=== PATIENT | female | born 1995 | race Caucasian/White ===

== ENCOUNTER 2018-10-15 17:30 | Emergency (ER) | payer OTHER ==
[2018-10-15 17:40] VITALS: BP 150/88
--- NOTE | 2018-10-15 18:02 | ER Document Report ---
ED Medical Screen (RME) - General Chief Complaint: Vaginal Bleeding Stated Complaint: VAGINAL BLEEDING Time Seen by Provider: 10/15/18 17:56 Mode of Arrival: Ambulatory Information source: Patient Notes: 23-year-old female presented to ED for complaint of vaginal bleeding and pelvic pain with nausea. Pain with intercourse. She states that her last regular menstrual period was May 30. She states beginning of September she started bleeding and some days it would be spotting some days it would be brown and some days it would be 9 and would change every day and then yesterday and today she has had very heavy bleeding with pelvic pain. She does have a history of ovarian cysts otherwise no medical history. I have greeted and performed a rapid initial assessment of this patient. A co mprehensive ED assessment and evaluation of the patient, analysis of test results and completion of medical decision making process will be conducted by an additional ED providers. Dictation of this chart was performed using voice recognition software; therefore, there may be some unintended grammatical errors. - Related Data Allergies/Adverse Reactions: No Known Allergies Allergy (Unverified 10/15/18 17:37) Past Medical History - Social History Chew tobacco use (# tins/day): No Frequency of alcohol use: None Drug Abuse: None Renal/ Medical History: Denies: Hx Peritoneal Dialysis Physical Exam - Vital signs Vitals: Temp Pulse Resp BP Pulse Ox 97.5 F 85 18 150/88 H 98 10/15/18 17:39 10/15/18 17:39 10/15/18 17:39 10/15/18 17:39 10/15/18 17:39 Course - Vital Signs Vital signs: Temp Pulse Resp BP Pulse Ox 97.5 F 85 18 150/88 H 98 10/15/18 17:39 10/15/18 17:39 10/15/18 17:39 10/15/18 17:39 10/15/18 17:39
[2018-10-15 18:30] LABS: ABSOLUTE BASOPHILS # (AUTO) 0.1 10^3/uL (0.0-0.2); ABSOLUTE EOSINOPHILS # (AUTO) 0.3 10^3/uL (0.0-0.6); ABSOLUTE LYMPHOCYTES (AUTO) 2.1 10^3/uL (0.5-4.7); ABSOLUTE MONOCYTES (AUTO) 0.4 10^3/uL (0.1-1.4); ABSOLUTE NEUT (AUTO) 4.2 10^3/uL (1.7-8.2); BASOPHILS % (AUTO) 1.1 % (0-2); EOSINOPHILS % (AUTO) 4.3 % (0-6); HEMATOCRIT 38.4 % (36.0-47.0); HEMOGLOBIN 13.1 g/dL (12.0-15.5); LYMPHOCYTES % (AUTO) 29.5 % (13-45); MEAN CORPUSCULAR HEMOGLOBIN 30.5 pg (27.0-33.4); MEAN CORPUSCULAR HGB CONC 34.2 g/dL (32.0-36.0); MEAN CORPUSCULAR VOLUME 89 fl (80-97); MONOCYTES % (AUTO) 5.3 % (3-13); PLATELET COUNT 320 10^3/uL (150-450); RED CELL DISTRIBUTION WIDTH 13.5 % (11.5-14.0); SEGMENTED NEUTROPHILS % (AUTO) 59.8 % (42-78); TOTAL CELLS COUNTED % (AUTO) 100 %
[2018-10-15 18:40] LABS: APPEARANCE,URINE CLEAR; BILIRUBIN,URINE NEGATIVE (NEGATIVE); COLOR,URINE YELLOW; GLUCOSE, URINE NEGATIVE (NEGATIVE); KETONES,URINE NEGATIVE (NEGATIVE); LEUKOCYTE ESTERASE,URINE NEGATIVE (NEGATIVE); NITRITE,URINE NEGATIVE (NEGATIVE); PROTEIN,URINE NEGATIVE (NEGATIVE); URINE SPECIFIC GRAVITY 1.023; UROBILINOGEN,URINE NEGATIVE mg/dL (<2.0)
[2018-10-15 18:49] LABS: ALANINE AMINOTRANSFERASE 20 U/L (9-52); ALBUMIN 4.1 g/dL (3.5-5.0); ALKALINE PHOSPHATASE 79 U/L (38-126); ANION GAP 8 (5-19); ASPARTATE AMINO TRANSFERASE 20 U/L (14-36); BILIRUBIN,DIRECT 0.1 mg/dL (0.0-0.4); BILIRUBIN,TOTAL 0.2 mg/dL (0.2-1.3); BLOOD UREA NITROGEN 10 mg/dL (7-20); CALCIUM 9.2 mg/dL (8.4-10.2); CARBON DIOXIDE 25 mmol/L (22-30); CHLORIDE 107 mmol/L (98-107); GLUCOSE 130 mg/dL (75-110); POTASSIUM 4.8 mmol/L (3.6-5.0); SODIUM 140.3 mmol/L (137-145); TOTAL PROTEIN 6.5 g/dL (6.3-8.2)
--- NOTE | 2018-10-15 19:37 | RADIOLOGY REPORT (SQ) ---
EXAM DESCRIPTION: U/S NON-OB PELVIS TV W/O DOP COMPLETED DATE/TIME: 10/15/2018 7:03 pm REASON FOR STUDY: Intermittent vaginal bleeding 09/18 pelvic pain COMPARISON: None. TECHNIQUE: Dynamic and static grayscale images acquired of the pelvis via transvaginal approach and recorded on PACS. Additional selected color Doppler and spectral images recorded. LIMITATIONS: None. FINDINGS: UTERUS: Contour normal. No mass. ENDOMETRIAL STRIPE: Heterogeneous endometrial thickening in the miduterine body level, 1.3 cm. Endom etrium measures 4 mm in the fundal region. CERVIX: No nabothian cysts. RIGHT OVARY AND DOPPLER: Normal size. No worrisome masses. Normal arterial vascular flow without evid ence for torsion. LEFT OVARY AND DOPPLER: Normal size. No worrisome masses. Normal arterial vascular flow without evide nce for torsion. FREE FLUID: None noted. OTHER: No other significant finding. MEASUREMENTS: UTERUS: 7.2 x 3.7 x 3.5 cm ENDOMETRIAL STRIPE: 1.3 cm RIGHT OVARY: 3.7 x 2.3 x 1.8 cm LEFT OVARY: 3.1 x 2.8 x 1.8 cm IMPRESSION: Heterogeneous endometrial thickening in the miduterine body level, 1.3 cm, the endometri um measures 4 mm in the fundal region, uncertain significance. No free fluid identified. COMMENT: Consider short interval follow-up exam and/or [facility]ER consultation. TECHNICAL DOCUMENTATION: JOB ID: [id number] [id number] 2010 [employer]- All Rights Reserved Rev-09/04 Reading location - IP/workstation name: [email or web address]
--- NOTE | 2018-10-15 20:18 | ER Document Report ---
Addendum entered and electronically signed by JUAN C DESAI PA-C 10/15/18 20:24: Discharge - Discharge Clinical Impression: Irregular periods, Dysfunctional uterine bleeding, Elevated blood pressure read ing Condition: Good Disposition: HOME, SELF-CARE Instructions: Dysfunctional Uterine Bleeding ([facility]) Additional Instructions: Please see the gynecology group to have testing done to check into the cause of your several months of amenorrhea Prescriptions: Tramadol HCl [Ultram] 50 mg PO Q6HP PRN #12 tablet PRN Reason: Forms: Elevated Blood Pressure Referrals: MELISSA HO MD [ACTIVE STAFF] - 10/18/18 Original Note: ED General - General Chief Complaint: Vaginal Bleeding Stated Complaint: VAGINAL BLEEDING Time Seen by Provider: 10/15/18 17:56 Mode of Arrival: Ambulatory Information source: Patient TRAVEL OUTSIDE OF THE [place] IN LAST 30 DAYS: No - HPI Patient complains to provider of: Heavy vaginal bleeding and cramping Onset: Yesterday Onset/Duration: Persistent Quality of pain: Sharp Severity: Moderate Pain Level: 3 Associated symptoms: None Exacerbated by: Denies Relieved by: Denies Similar symptoms previously: No Recently seen / treated by doctor: No Notes: 23-year-old female coming in today chief complaint heavy. Bleeding and bad stomach cramps. She reports a history of no. Since May. Multiple negative test during that time. Recently started bleeding again but has developed much heavier bleeding in the past 24 hours and cramping then she has in the past. She is not lightheaded dizzy weak or short of breath. History of implanted progestin control which is come out sometime ago. - Related Data Allergies/Adverse Reactions: No Known Allergies Allergy (Unverified 10/15/18 17:37) Past Medical History - General Information source: Patient - Social History Smoking Status: Never Smoker Chew tobacco use (# tins/day): No Frequency of alcohol use: None Drug Abuse: None Family History: Reviewed & Not Pertinent Patient has suicidal ideation: No Patient has homicidal ideation: No Renal/ Medical History: Denies: Hx Peritoneal Dialysis Review of Systems - Review of Systems Notes: Constitutional: No fevers. No chills. EENT: No eye redness. No eye pain. No ear pain. No sore throat. Cardiovascular: No chest pain. No palpitations. Respiratory: No cough. No shortness of breath. No respiratory distress. Gastrointestinal: No abdominal pain. No nausea, vomiting, or diarrhea. Genitourinary: Cramping, vaginal bleeding Musculoskeletal: Atraumatic. No swelling. No deformities. Skin: No rash or lesions. Lymphatic: No swollen lymph nodes. Neurologic: No headache. No syncope. Psychiatric: No suicidal or homicidal ideation. Physical Exam - Vital signs Vitals: Temp Pulse Resp BP Pulse Ox 97.5 F 85 18 150/88 H 98 10/15/18 17:39 10/15/18 17:39 10/15/18 17:39 10/15/18 17:39 10/15/18 17:39 - Notes Notes: General: Well-developed, well-nourished. In no acute distress. Non-toxic appearing. Cardiac: Well-perfused. Regular rate and rhythm. No murmurs, rubs, or gallops. Pulmonary: No respiratory distress. No cyanosis. Bilateral lung fiels are clear to auscultation. Abdominal: Non-distended. Non-rigid. Bowels sounds are present in all four quadrants. No guarding or rebound. HEENT: Head is atraumatic. Conjunctivae not reddened. No tearing. PERRL. EOMI. Orbits atraumatic. No periorbital swelling or erythema. Oropharynx is without erythema, swelling, or exudates. Neck: Supple. No adenopathy. No meningismus. Dermatologic: Warm with good turgor. No rash. Atraumatic. Chest: Atraumatic. No chest wall tenderness to palpation. Musculoskeletal: Moves all extremities well. No range of motion deficits. no muscular or joint tenderness. No paraspinal muscle tenderness. no midline spinal tenderness or step-off. Genitourinary: Examination deferred Neurologic: No gross neurologic deficits. Psychiatric: Normal mood. Course - Re-evaluation Re-evalutation: 10/15/18 20:17 H&H stable. No concern for infection. Sounds like patient has some hormonal imbalance, possible PCOS. I will refer her to gynecology to have this checked more in-depth. Vital signs are stable. Will discharge - Vital Signs Vital signs: Temp Pulse Resp BP Pulse Ox 97.5 F 85 18 150/88 H 98 10/15/18 17:39 10/15/18 17:39 10/15/18 17:39 10/15/18 17:39 10/15/18 17:39 - Laboratory Result Diagrams: 10/15/18 18:15 10/15/18 18:15 Laboratory results interpreted by me: 10/15/18 10/15/18 18:15 18:15 Glucose 130 H Urine Blood MODERATE H Discharge - Discharge Clinical Impression: Irregular periods, Dysfunctional uterine bleeding, Elevated blood pressure reading Condition: Good Disposition: HOME, SELF-CARE Instructions: Dysfunctional Uterine Bleeding ([facility]) Additional Instructions: Please see the gynecology group to have testing done to check into the cause of your several months of amenorrhea Forms: Elevated Blood Pressure Referrals: MELISSA HO MD [ACTIVE STAFF] - 10/18/18
== END 2018-10-15 20:38 | disposition home or self-care (01) ==
LOC: ER 17:30
DX: N93.8 Other specified abnormal uterine and vaginal bleeding (principal); N92.6 Irregular menstruation, unspecified; R03.0 Elevated blood-pressure reading, without diagnosis of hypertension
CPT/HCPCS: 36415; 76830; 80053; 81001; 84703; 85025; 99284